=== PATIENT | female | born 1995 | race American Indian/Alaskan Native ===

== ENCOUNTER 2018-11-05 10:50 | Emergency (ER) | payer MEDICAID ==
[2018-11-05 10:59] VITALS: BMI 31.0
[2018-11-05] MEDS ORDERED: Sodium Chloride 0.9% 1,000 ML IV ONE (12:02)
[2018-11-05 12:47] LABS: BASO % 0.4 % (0.0-2.0); EOS # 0.1 K/uL (0.0-0.7); EOS % 0.7 % (0.0-4.0); LYMPH % 19.9 % (20.0-40.0); MEAN CELL VOLUME 91.6 fl (81.0-99.0); MEAN CORPUSCULAR HEMOGLOBIN 30.7 pg (27.0-31.0); MEAN CORPUSCULAR HGB CONC 33.6 g/dL (33.0-37.0); MEAN PLATELET VOLUME 8.6 fl (7.2-11.7); MONO # 0.6 K/uL (0.0-0.8); MONO % 6.3 % (0.0-10.0); NEUT # 7.2 K/uL (1.8-7.0); NEUT % 72.7 % (50.0-75.0); RBC 4.23 Mil/uL (3.80-5.20); RED CELL DISTRIBUTION WIDTH 13.1 % (11.5-14.5); WHITE BLOOD COUNT 9.9 K/uL (4.8-10.8)
[2018-11-05 12:56] LABS: ALB/GLOB RATIO 1.3 (1.0-2.1); ALBUMIN 4.3 g/dL (3.5-5.0); ALT/SGPT 23 U/L (9-52); AST/SGOT 32 U/L (14-36); BLOOD UREA NITROGEN 14 mg/dl (7-17); CALCIUM 9.5 mg/dL (8.4-10.2); GFR NON-AFRICAN AMERICAN > 60
--- NOTE | 2018-11-05 12:59 | ED PDOC ---
HPI: Female Pain Time Seen by Provider: 11/05/18 11:48 Chief Complaint (Nursing): Female Genitourinary Chief Complaint (Provider): Vaginal Bleed with History/Exam Limitations: no limitations Onset/Duration Of Symptoms: Days (two), Persistent Current Symptoms Are (Timing): Still Present Severity: Mild (Pt presents to the ED after testing positive with a home test and seeking a therapeutic , that she has an ectopic . Pt is indicating that she is bleeding vaginally needing to change 4-5 pads daily. Pt denies fever, NVD; pt has had one previous therapeutic ) Past Medical History Reviewed: Historical Data, Nursing Documentation, Vital Signs Vital Signs: Last Vital Signs Temp 98.5 F 11/05/18 10:59 Pulse 83 11/05/18 10:59 Resp 17 11/05/18 10:59 BP 117/84 11/05/18 10:59 Pulse Ox 99 11/05/18 10:59 - Surgical History Surgical History: Tonsillectomy - Family History Family History: States: Unknown Family Hx - Allergies Allergies/Adverse Reactions: Allergies Allergy/AdvReac Type Severity Reaction Status Date / Time No Known Allergies Allergy Verified 11/05/18 11:46 Review of Systems ROS Statement: Except As Marked, All Systems Reviewed And Found Negative Gastrointestinal: Positive for: Abdominal Pain (suprapubic pain bilaterally) Genitourinary Female: Positive for: Vaginal Bleeding Physical Exam - Reviewed Nursing Documentation Reviewed: Yes Vital Signs Reviewed: Yes - Physical Exam Appears: Positive for: Well, Non-toxic, No Acute Distress. Negative for: Uncomfortable Head Exam: Positive for: ATRAUMATIC, NORMAL INSPECTION Skin: Positive for: Normal Color, Warm, Dry. Negative for: Diaphoresis, Pallor, Rash Eye Exam: Positive for: Normal appearance. Negative for: Nystagmus, Periorbital swelling, Periorbital tenderness ENT: Positive for: Normal ENT Inspection Neck: Positive for: Normal, Painless ROM, Supple. Negative for: Decreased ROM Cardiovascular/Chest: Positive for: Regular Rate, Rhythm Respiratory: Positive for: Normal Breath Sounds Pulses-Carotid (L): 2+ Pulses-Carotid (R): 2+ Pulses-Radial (L): 2+ Pulses-Radial (R): 2+ Gastrointestinal/Abdominal: Positive for: Normal Exam, Bowel Sounds, Soft, Tenderness (suprapubic bilateral tenderness). Negative for: Distended, Guarding, Rebound - Laboratory Results Result Diagrams: 11/05/18 12:25 11/05/18 12:25 Lab Results: Total Bilirubin 0.7 mg/dl (0.2-1.3) 11/05/18 12:25 AST 32 U/L (14-36) 11/05/18 12:25 ALT 23 U/L (9-52) 11/05/18 12:25 Alkaline Phosphatase 61 U/L (38-126) 11/05/18 12:25 Total Protein 7.6 G/DL (6.3-8.2) 11/05/18 12:25 Albumin 4.3 g/dL (3.5-5.0) 11/05/18 12:25 Globulin 3.4 gm/dL (2.2-3.9) 11/05/18 12:25 Albumin/Globulin Ratio 1.3 (1.0-2.1) 11/05/18 12:25 - ECG O2 Sat by Pulse Oximetry: 99 Medical Decision Making Medical Decision Making: I: spontaneous P: CBC CMP bHCG Transvag US US read indicates bilateral cysts on the ovaries and the inability to r/o ectopic bHCG is 6.97 consistent with <2weeks Pt advised to return to ED in 48 hours for retesting of beta quant. In addition, return to ED if bleeding increases or fever or pain increases Disposition - Clinical Impression Clinical Impression: Abnormal in first trimester - Disposition Referrals: [facility] [place] [facility]Outside] [facility] [Outside] Disposition Time: 15:25 Condition: STABLE Additional Instructions: Pt advised to return to ED in 48 hours for retesting of beta quant. In addition, return to ED if bleeding increases or fever or pain increases Instructions: Bleeding With , Bleeding With (DC) Forms: [employer] ([employer])
--- NOTE | 2018-11-05 13:10 | US ---
Date of service: 11/05/2018 HISTORY: r/o ectopic prg COMPARISON: None available. TECHNIQUE: Transvaginal technique utilized. FINDINGS: UTERUS: Measures 6.7 x 3.3 x 4.0 cm. Normal anteverted appearance. No fibroid or other mass lesion seen. No intrauterine gestation/embryonic pole or gestational sac appreciated. ENDOMETRIUM: Measures 8 mm in diameter. Unremarkable. CERVIX: Nonspecific heterogeneous cervical echotexture. RIGHT OVARY: Measures 2.5 x 2.0 x 2.9 cm multiple small peripheral follicles noted. Normal flow. LEFT OVARY: Measures 3.5 x 1.7 x 3.2 cm. Dominant left ovarian follicle measuring 1.1 x 1.3 x 1.2 cm. Normal flow. FREE FLUID: Some free fluid in the cul-de-sac the amount is believed to be mild in degree. 1 pocket on the sagittal images is 1.9 by 0.8 cm. OTHER FINDINGS: None. IMPRESSION: At this time no intrauterine gestational sac or intra gestational is identified. An early ectopic is not excluded. No adnexal masses noted. Correlation with serial beta HCG levels recommended. Continued clinical follow-up advised. Amount of free fluid in the cul-de-sac noted.
[2018-11-05 13:16] LABS: URINE BILIRUBIN SMALL (NEGATIVE); URINE CLARITY BLOODY (Clear); URINE COLOR RED (YELLOW); URINE GLUCOSE (UA) NEGATIVE (NEGATIVE)
[2018-11-05 13:18] LABS: SQUAMOUS EPITHIAL 5 /hpf (0-5); URINE BLOOD LARGE (NEGATIVE); URINE LEUKOCYTE ESTERASE NEGATIVE Leu/uL (Negative); URINE PROTEIN >=300 mg/dL (NEGATIVE); URINE UROBILINOGEN 0.2 mg/dL (0.2-1.0)
[2018-11-05 13:19] LABS: URINE BACTERIA FEW (<OCC)
[2018-11-05 15:41] VITALS: BP 118/80; PULSE 82; RESP 16; TEMP 98.8
[2018-11-09 20:00] VITALS: O2SAT 99
== END 2018-11-05 15:51 | disposition home or self-care (01) ==
LOC: H.ER 10:50
DX: O03.9 Complete or unspecified spontaneous abortion without complication (principal); N83.201 Unspecified ovarian cyst, right side; Z3A.01 Less than 8 weeks gestation of pregnancy
CPT/HCPCS: 76817; 80053; 81003; 81025; 84702; 85025; 86850; 86900; 87086; 96360; 99285; J7030